=== PATIENT | male | born 1960 | race Caucasian/White ===

== ENCOUNTER → 2022-11-02 11:24 | Outpatient (POV) | payer OTHER, SELFPAY ==
[2022-11-02 12:04] VITALS: BP 120/78; PULSE 80; RESP 18; O2SAT 98; BMI 28.9
--- NOTE | 2022-11-02 12:41 | EXP.PAIN.OV ---
HPI Data of Consult Patient: new to practice Consult date: 11/02/22 Requesting Physician: Yuliana Soni APRN Primary Care Provider: Joshua Gilbert Consult Narrative Reason for consult: Low back pain, right leg pain History of present illness: Mr. Spears is a 62 year old male who presents today as a new patient. He is a referral from Joshua Gilbert's office. Today he rates his pain a 0 out of 10. Patient states that he has pain in his low back with radiating symptoms more prominent on his right thigh that will occasionally run down to his foot. Patient does describe this as a dull achy sensation that is worse with increased activity. He states that normally first thing in the morning he does well however as the day progresses his pain does increase and by the end of the day he is in significant pain. Patient did have a lumbar fusion approximately 35 years ago and states since then he is continued to have some chronic back pain. Patient does state his pain is worse with increased activity and that bending, lifting or twisting often causes sharp pains. Patient states with these motions his pain stays just in his back. He states he did mistakenly go to the [place] office this morning and was bending over onto the counter and had significant locking up issues in his back and pain after. Patient does not take any oral medications. He also states he does not typically use any topicals. Patient will use heating pad however this only provides temporary relief. Patient did go to the chiropractor on a regular basis that did help however his last visit was in December 2021 at which time he would not do anything additional until being seen by a medical provider for his back. Patient denies any physical therapy in the recent past. Patient will use an inversion table on a regular basis for some relief. Patient denies any updated imaging. He does state he has never had injections before. He is interested in any help we may be able to provide to give additional relief. Patient is not on any scheduled medications. Patient states he does see Dr. Lizarraga in [place]. He did present today with imaging of his lumbar spine however no written report. His Derik is [id number]. Its been reviewed and appropriate. CC: Yuliana Soni APRN [facility] Disclaimer: The information contained in this section may have been updated after the patient was seen, as this information can be updated by other users. Medical History (Updated 11/02/22 @ 12:49 by Yuliana Soni APRN) Anxiety BPH (benign prostatic hyperplasia) Carpal tunnel syndrome of left wrist Carpal tunnel syndrome of right wrist Erectile dysfunction GERD (gastroesophageal reflux disease) HTN (hypertension) SATISH (obstructive sleep apnea) Vertigo Surgical History (Updated 11/02/22 @ 12:08 by Glendy Shen RN) H/O colonoscopy History of lumbar fusion Hx of cholecystectomy Family History (Updated 11/02/22 @ 12:06 by Glendy Shen RN) Other Diabetes Hyperlipidemia Hypertension Social History (Updated 11/02/22 @ 12:12 by Glendy Shen RN) Smoking Status: Current every day smoker alcohol intake: never current occupational status: employed Travel in the last 8 weeks: None Review of Systems Review of Systems Review of systems:: pertinent systems reviewed and negative unless documented below Review of systems (narrative): Review of Systems: General: No recent weight changes, no fever, no sleep disturbances Respiratory: No cough, no shortness of air, no recurring pulmonary infections Cardiovascular/peripheral vascular: No chest pain, no palpitations, no edema, no shortness of breath Gastrointestinal: No new onset incontinence, normal bowel movements reported Genitourinary: No new onset incontinence Musculoskeletal: Low back pain Psychiatric: [Normal mood/affect] Neurological: [Denies weakness in extremities], [denies balance issues] Meds Home Medications and Allergies Home Me
== END ==
PROVIDERS: PCP Family Medicine; Visit Provider Nurse Practitioner Family
DX: M51.16 Intervertebral disc disorders with radiculopathy, lumbar region (principal); M79.604 Pain in right leg; M47.816 Spondylosis without myelopathy or radiculopathy, lumbar region
CPT/HCPCS: 99202; G0463

== ENCOUNTER → 2022-11-02 12:34 | Outpatient (CLI) | payer OTHER, SELFPAY ==
--- NOTE | 2022-11-02 12:48 | XR_ITS ---
FINAL REPORT CLINICAL HISTORY: LBP FINDINGS: 5 views of the lumbar spine were obtained. There are moderate degenerative changes. There is no evidence of fracture or dislocation. There is moderate anterolisthesis of L4 on L5. Vacuum disc phenomena is seen at several levels. There are moderate vascular calcifications. IMPRESSION: Moderate degenerative changes without acute bony abnormality. Reviewed, Interpreted and Dictated by Dave Molina III, MD Transcribed by Agatha Patiño Authenticated and [facility]
== END ==
PROVIDERS: PCP Family Medicine; Visit Provider Nurse Practitioner Family
DX: M54.50 Low back pain, unspecified (principal)
CPT/HCPCS: 72110

== ENCOUNTER 2022-11-10 10:27 | Day surgery (SDC) | payer OTHER, SELFPAY ==
[2022-11-10 10:47] VITALS: BP 135/84; PULSE 75; RESP 18; TEMP 36.2; O2SAT 97; BMI 28.2
[2022-11-10 10:53] VITALS: BP 156/89; PULSE 71; RESP 18; O2SAT 97
[2022-11-10 10:54] VITALS: BP 156/89; PULSE 71; RESP 18; O2SAT 98
[2022-11-10 11:08] VITALS: BP 112/67; PULSE 77; RESP 18; O2SAT 97
--- NOTE | 2022-11-10 11:46 | P.PCN_ITS ---
Procedure Date: 11/10/22 Time: 11:20 Anesthesiologist:: Spike Terry CRNA Complications:: None Pre-procedure Diagnosis:: Degenerative disc disease lumbar spine multilevels. Lumbar radiculopathy. Lumbar facet arthropathy. Lumbar spondylosis. Lumbar postlaminectomy syndrome. Post-procedure Diagnosis:: Same. Indications for Procedure:: This patient is a very pleasant 62-year-old male that comes our clinic today for right side medial branch blocks/facet block L4-5, L5-S1. Patient describes low back pain as constant, dull, aching. Patient reports pain increases at the end of the day after working. He rates his pain 7/10. Procedure Details:: Informed consent was obtained and the risk and benefits of the procedure was explained to the patient. Patient was taken to the procedure room where noninvasive monitors were placed, including noninvasive blood pressure cuff as well as pulse oximeter. The area over the lumbar spine was cleansed using chlorhexidine as a cleansing solution. I anesthetized the skin and subcutaneous tissues with 1% Lidocaine. I placed 22-gauge spinal needles into the right facet joint/ medial branches of L4-L5, and L5-S1] bilaterally. Needle placement was confirmed with fluoroscopy. After confirmation of needle placement, each site was injected with 1 mL of 1% lidocaine and 0.25 % Marcaine and 10 mg of Depo- Medrol. A total of 40 mg of depo medrol was used for right medial branch blocks of L4-L5, and L5-S1] bilaterally. Patient tolerated the procedure without difficulty. There were no complications. Plan and Disposition:: Patient was discharged without incident.
== END 2022-11-10 11:08 | disposition home or self-care (01) ==
LOC: SC.PAINP 10:29
PROVIDERS: PCP Family Medicine; Visit Provider Nurse Anesthetist, Certified Registered
DX: M51.16 Intervertebral disc disorders with radiculopathy, lumbar region (principal); M96.1 Postlaminectomy syndrome, not elsewhere classified; M47.896 Other spondylosis, lumbar region
CPT/HCPCS: 64493; 64494; J1040

== ENCOUNTER → 2022-11-25 13:19 | Outpatient (POV) | payer OTHER, SELFPAY ==
[2022-11-25 13:44] VITALS: BP 122/82; PULSE 93; RESP 18; O2SAT 97; BMI 28.0
--- NOTE | 2022-11-25 14:04 | A.OFFVIS_ITS ---
[facility] Pain Management SOAP Note Subjective:: Patient is a pleasant 62-year-old who presents today for follow-up of medial branch block right side L4-L5 and L5-S1 on 11/10/2022. We are currently treating the patient for degenerative disc disease of lumbar spine with lumbar radiculopathy symptoms, lumbar facet arthropathy, lumbar spondylosis, low back pain, right leg pain. Today he rates his pain a 0 out of 10. Patient states that he has had approximately 50% relief following these injections and that it has helped. He does state that he continues to have some pain depending on his activity. He states frequently he will continue to do things he really should not and then by the end of the night have worsening pain symptoms. He is not currently on any scheduled medications. His Derik is [id number]. Its been reviewed and appropriate. Review of Systems: General: No recent weight changes, no fever, no sleep disturbances Respiratory: No cough, no shortness of air, no recurring pulmonary infections Cardiovascular/peripheral vascular: No chest pain, no palpitations, no edema, no shortness of breath Gastrointestinal: No new onset incontinence, normal bowel movements reported Genitourinary: No new onset incontinence Musculoskeletal: Low back pain Psychiatric: [Normal mood/affect] Neurological: [Denies weakness in extremities], [denies balance issues] Objective:: Physical Exam: General: Alert and oriented x3, no acute distress, pleasant and cooperative Lungs: Respirations even and unlabored, symmetrical chest expansion Eyes: PERRL Musculoskeletal: Flexion and extension of lumbar [spine] somewhat guarded secondary to pain, [antalgic gait noted] Neurological: Speech clear, no gross sensory deficit Assessment:: Degenerative disc disease of lumbar spine with lumbar radiculopathy symptoms, lumbar facet arthropathy, lumbar spondylosis, low back pain, right leg pain Plan:: Patient has had approximately 50% improvement following his medial branch block and does not require any additional injective therapy at this time. Patient will return to clinic in 1 month for reevaluation of symptoms and plan of care. Patient has been instructed to contact the clinic with any concerns before the next appointment. Dr. Oquendo has reviewed this note and agrees with this plan of care. This note was dictated using voice recognition software and make contain errors or omissions. [facility] Disclaimer: The information contained in this section may have been updated after the pat ient was seen, as this information can be updated by other users. Medical History Anxiety BPH (benign prostatic hyperplasia) Carpal tunnel syndrome of left wrist Carpal tunnel syndrome of right wrist Erectile dysfunction GERD (gastroesophageal reflux disease) HTN (hypertension) SATISH (obstructive sleep apnea) Vertigo Surgical History H/O colonoscopy History of lumbar fusion Hx of cholecystectomy Family History Other Diabetes Hyperlipidemia Hypertension Social History Smoking Status: Current every day smoker alcohol intake: never current occupational status: employed Travel in the last 8 weeks: None
== END ==
PROVIDERS: PCP Family Medicine; Visit Provider Nurse Practitioner Family
DX: M51.16 Intervertebral disc disorders with radiculopathy, lumbar region (principal); M47.26 Other spondylosis with radiculopathy, lumbar region; M79.604 Pain in right leg
CPT/HCPCS: 99212; G0463